=== PATIENT | male | born 1985 | race African-American/Black ===

== ENCOUNTER 2017-11-21 07:46 | Emergency (ER) | payer OTHER ==
[2017-11-21 07:54] VITALS: BMI 23.7
--- NOTE | 2017-11-21 08:04 | PDOC ---
History of Present Illness - General History Source: Patient Exam Limitations: No Limitations - History of Present Illness Initial Comments: 11/21/17 09:29 Patient is a 32-year-old male, with no past medical history, who presents with 3 days of right upper quadrant pain, tearing in nature, with radiation to the right side of back, unaffected by food. The patient denies any nausea, vomiting , diarrhea, melena, hematochezia, anorexia. The patient reports having a loose bowel movement last night. Last meal was chicken and noodles. He denies any dysuria, frequency, urgency, hematuria, fever, or chills. He denies any chest pain or shortness of breath. Allergies: NKA Surgical History: None reported. Social History: None reported. PCP: Dr. Encarnacion <Sheyla Antoine - Last Filed: 11/21/17 14:47> <Varun Petersen - Last Filed: 11/21/17 16:38> - General Chief Complaint: Pain Stated Complaint: ABD PAIN Time Seen by Provider: 11/21/17 08:04 Past History <Sheyla Antoine - Last Filed: 11/21/17 14:47> - Past Medical History COPD: No - Suicide/Smoking/Psychosocial Hx Smoking History: Never smoked Information on smoking cessation initiated: No Hx Alcohol Use: No Drug/Substance Use Hx: No Substance Use Type: None <Varun Petersen - Last Filed: 11/21/17 16:38> - Past Medical History Allergies/Adverse Reactions: Allergies Allergy/AdvReac Type Severity Reaction Status Date / Time No Known Allergies Allergy Verified 11/21/17 07:52 Home Medications: Ambulatory Orders NK [No Known Home Medication] 11/21/17 Review of Systems - Review of Systems Able to Perform ROS?: Yes Comments:: 11/21/17 09:57 CONSTITUTIONAL: No fever, no chills, no fatigue EYES: No visual changes ENT: No ear pain, no sore throat CARDIOVASCULAR: No chest pain, no palpitations RESPIRATORY: No cough, no SOB GI: (+)Abdominal pain. No nausea, no vomiting, no constipation, no diarrhea GENITOURINARY: No dysuria, no frequency, no hematuria MUSKULOSKELETAL: No backpain, no joint pain, no myalgias SKIN: No rash NEURO: No headache <Sheyla Antoine - Last Filed: 11/21/17 14:47> *Physical Exam - Vital Signs Last Vital Signs Temp Pulse Resp BP Pulse Ox 98.6 F 60 18 134/85 100 11/21/17 07:52 11/21/17 07:52 11/21/17 07:52 11/21/17 07:52 11/21/17 07:52 - Physical Exam Comments: 11/21/17 09:58 CONSTITUTIONAL: Well-appearing; well-nourished; in no apparent distress HEAD: Normocephalic; atraumatic EYES: PERRL; EOM intact ENMT: External appears normal; normal oropharynx NECK: Supple; non-tender; no cervical lymphadenopathy CARD: Normal S1, S2; no murmurs, rubs, or gallops RESP: Normal chest excursion with respiration; breath sounds clear and equal bilaterally; no wheezes, rhonchi, or rales ABD: (+)Right upper quadrant tenderness. Soft, non-distended; no palpable organomegaly, no palpable hernias MSK: (+)Right CVA tenderness. EXT: Normal ROM in all four extremities; non-tender to palpation; distal pulses intact SKIN: Warm, dry, no rash NEURO: No focal neurological deficiencies. <Sheyla Antoine - Last Filed: 11/21/17 14:47> - Vital Signs Last Vital Signs Temp Pulse Resp BP Pulse Ox 98.6 F 60 18 134/85 100 11/21/17 07:52 11/21/17 07:52 11/21/17 07:52 11/21/17 07:52 11/21/17 07:52 <Varun Petersen - Last Filed: 11/21/17 16:38> ED Treatment Course - LABORATORY CBC & Chemistry Diagram: 11/21/17 08:39 11/21/17 08:40 - ADDITIONAL ORDERS Additional order review: Laboratory Results 11/21/17 08:40 Sodium 136 Potassium 4.3 Chloride 103 Carbon Dioxide 27 Anion Gap 6 L BUN 11 Creatinine 0.9 Creat Clearance w eGFR > 60 Random Glucose 103 Calcium 9.7 Total Bilirubin 0.5 AST 23 ALT 36 Alkaline Phosphatase 56 Total Protein 7.5 Albumin 4.1 Lipase 69 L - Medications Given in the ED: ED Medications Discontinued Medications Generic Name Dose Route Start Last Admin Trade Name Freq PRN Reason Stop Dose Admin Sodium Chloride 1,000 mls @ 1,000 mls/hr 11/21/17 08:27 11/21/17 08:39 Normal Saline - IV 11/21/17 09:26 1,000 mls/hr ASDIR STA Administration <Sheyla Antoine - Last Filed: 11/21/17 14:47> - LABORATORY CBC & Chemistry Diagram: 11/21/17 08:39 11/21/17 08:40 <Varun Petersen - Last Filed: 11/21/17 16:38> Medical Decision Making - Medical Decision Making 11/21/17 14:47 Dr. Argueta was paged and notified via phone service. <Sheyla Antoine - Last Filed: 11/21/17 14:47> - Medical Decision Making 11/21/17 10:34 Patient is a well-appearing 32-year-old male who presents to the ER with atraumatic right-sided abdominal pain for the past 2 days, intermittent, waxing and waning in severity without nausea/vomiting with a single episode of loose stools. In the ER, patient is awake and alert, with mild epigastric and right upper quadrant tenderness to deep palpation without guarding or rebound. Differential diagnoses includes cholelithiasis versus hepatitis versus pancreatitis versus colitis. Will obtain CBC/CMP/lipase. We'll obtain right upper quadrant ultrasound to evaluate for cholelithiasis and kidney stones. Will reassess. 11/21/17 11:43 Right upper quadrant ultrasound shows no evidence of acute pathology. Will obtain CT with by mouth and IV contrast. We'll continue to hydrate. 11/21/17 16:37 CT of abdomen and pelvis reveals thickening of the colonic mucosa within the ascending and transverse colon consistent with colitis. Patient tolerates by mouth and is currently pain-free. Case discussed with Dr. Argueta of GI. Will discharge with clear instructions to return for severe pain, persistent vomiting , rectal bleeding. Will hold off on antibiotic therapy at this time as patient does not have a high fever nor elevated WBCs. Will discharge. <Varun Petersen - Last Filed: 11/21/17 16:38> *DC/Admit/Observation/Transfer - Attestations Scribe Attestion: 11/21/17 10:01 Documentation prepared by Sheyla Antoine, acting as medical sales associate for Varun Petersen MD. <Sheyla Antoine - Last Filed: 11/21/17 14:47> - Attestations Physician Attestion: 11/21/17 10:13 The documentation was prepared by the scribe under my direct supervision. I have reviewed the documentation which correctly represents the findings, medical decision-making and critical action taken by me. <Varun Petersen - Last Filed: 11/21/17 16:38> Diagnosis at time of Disposition: Colitis - Discharge Dispostion Disposition: HOME Condition at time of disposition: Stable - Referrals Referrals: Janay Encarnacion MD [Primary Care Provider] - Bry Argueta MD [Staff Physician] - - Patient Instructions Printed Discharge Instructions: DI for Colitis Additional Instructions: Return immediately for severe pain, persistent vomiting, rectal bleeding, high fever. - Post Discharge Activity Forms/Work/School Notes: Back to Work
[2017-11-21] MEDS ORDERED: SODIUM CHLORIDE 1,000 ML IV STA (08:27)
[2017-11-21 09:21] LABS: ALBUMIN 4.1 g/dl (3.4-5.0); ANION GAP 6 (8-16); BLOOD UREA NITROGEN 11 mg/dL (7-18); CALCIUM 9.7 mg/dL (8.5-10.1); CHLORIDE 103 mmol/L (98-107); CO2 27 mmol/L (21-32); GLUCOSE,RANDOM 103 mg/dL (74-106); LIPASE 69 U/L (73-393); POTASSIUM 4.3 mmol/L (3.5-5.1); SODIUM 136 mmol/L (136-145)
[2017-11-21 09:24] LABS: ALK PHOS 56 U/L (45-117); BILIRUBIN,TOTAL 0.5 mg/dL (0.2-1.0); CREATININE 0.9 mg/dL (0.7-1.3); SGOT/AST 23 U/L (15-37); SGPT/ALT 36 U/L (12-78); TOT PROT 7.5 g/dl (6.4-8.2)
[2017-11-21] MEDS ORDERED: morphine CARPU-JECT 2 MG/1 ML DISP.SYRIN IVPUSH ONE (09:58)
[2017-11-21 10:06] LABS: BASO % 0.5 % (0-2.0); EOS % 3.7 % (0-4.5); HEMATOCRIT 41.1 % (35.4-49); HEMOGLOBIN 14.3 GM/dL (11.7-16.9); MCH 28.4 pg (25.7-33.7); MCHC 34.8 g/dl (32.0-35.9); MEAN CELL VOLUME 81.5 fl (80-96); MEAN PLT VOLUME 8.9 fl (7.5-11.1); MONO % 8.8 % (3.8-10.2); PLATELET COUNT 300 K/MM3 (134-434); RBC 5.04 M/mm3 (4.00-5.60); RDW 13.4 % (11.9-15.9); WHITE BLOOD COUNT 7.3 K/mm3 (4.0-10.0)
[2017-11-21] MEDS ORDERED: MORPHINE SULFATE 2 MG/ML VIAL ONE (10:37)
[2017-11-21 11:11] LABS: URINE APPEARANCE CLEAR; URINE BILIRUBIN NEGATIVE (<2.0 mg/dL); URINE COLOR STRAW; URINE GLUCOSE (UA) NEGATIVE (NEGATIVE); URINE KETONE NEGATIVE (NEGATIVE); URINE LEUK ESTERASE NEGATIVE (NEGATIVE); URINE NITRITE NEGATIVE (NEGATIVE); URINE PROTEIN NEGATIVE (NEGATIVE); URINE UROBILINOGEN NEGATIVE mg/dL (0.2-1.0)
[2017-11-21 12:00] VITALS: BP 132/86; PULSE 68; TEMP 97.5
== END 2017-11-21 16:53 | disposition home or self-care (01) ==
LOC: JER 07:46
PROC: 3E0337Z Introduction of Electrolytic and Water Balance Substance into Peripheral Vein, Percutaneous Approach (ICD-10-PCS; principal; 2017-11-21)
PROC: 3E033NZ Introduction of Analgesics, Hypnotics, Sedatives into Peripheral Vein, Percutaneous Approach (ICD-10-PCS; 2017-11-21)
DX: K52.9 Noninfective gastroenteritis and colitis, unspecified (principal)
CPT/HCPCS: 36415; 74177-TC; 76705-TC; 80053; 81003; 83690; 85025; 99282-25; J7030

== ENCOUNTER 2020-11-01 07:06 | Emergency (ER) | payer OTHER ==
[2020-11-01 07:18] VITALS: BP 140/92; PULSE 79; TEMP 98.2; BMI 23.7
[2020-11-01] MEDS ORDERED: KETOROLAC TROMETHAMINE 60 MG/2 ML VIAL IM ONE (07:36)
[2020-11-01] MEDS ORDERED: KETOROLAC TROMETHAMINE 30 MG/1 ML VIAL ONE (07:42)
== END 2020-11-01 08:58 | disposition home or self-care (01) ==
LOC: JERFT 07:06
PROC: 3E0233Z Introduction of Anti-inflammatory into Muscle, Percutaneous Approach (ICD-10-PCS; principal; 2020-11-01)
DX: M25.512 Pain in left shoulder (principal)
CPT/HCPCS: 73030-TC-LT-FY; 99284-25